=== PATIENT | male | born 1990 | race Caucasian/White ===

== ENCOUNTER 2021-10-22 14:01 | Emergency (ER) | payer SELFPAY ==
[~2021-10-22] VITALS: Ht 180.3 cm; Wt 120.0 kg
[2021-10-22] MEDS ORDERED: LORAZEPAM 2MG/ML CPJ IV ONE (15:00)
[2021-10-22] MEDS ORDERED: SODIUM CHLORIDE 0.9% 1,000 ML IV ONE ×2 (15:00→16:45)
[2021-10-22 15:39] LABS: HEMATOCRIT. 44.8 % (42.0-52.0); HEMOGLOBIN. 15.3 g/dL (14.0-18.0); MEAN CORPUSCULAR HEMOGLOBIN 35.2 pg (28.0-32.0); MEAN CORPUSCULAR VOLUME 103.1 fL (80.0-94.0); MEAN PLATELET VOLUME 8.8 fl (7.4-10.4); PLATELET 171 x1000/uL (130-400); RED BLOOD CELL COUNT 4.35 mill/uL (4.7-6.1)
[2021-10-22 15:48] LABS: CHLORIDE 99 mEq/L (98-107)
[2021-10-22 15:53] LABS: ETHANOL BLOOD 41 mg/dL
[2021-10-22 17:54] LABS: CLARITY URINE CLEAR (CLEAR); COLOR URINE YELLOW (YELLOW); KETONES URINE TRACE (NEGATIVE); LEUKOCYTE ESTERASE URINE NEGATIVE (NEGATIVE); NITRITE URINE NEGATIVE (NEGATIVE); OCCULT BLOOD URINE TRACE (NEGATIVE); PH URINE 6.5 (4.5-8.0); PROTEIN URINE 2+ (NEGATIVE)
[2021-10-22 18:10] LABS: PLATELET ESTIMATE NORMAL
[2021-10-22 18:12] LABS: *AMPHETAMINES SCREEN URINE NEGATIVE (NEGATIVE); *BARBITURATES SCREEN URINE NEGATIVE (NEGATIVE); *BENZODIAZEPINES SCREEN URINE NEGATIVE (NEGATIVE)
[2021-10-22 18:13] LABS: *COCAINE SCREEN URINE NEGATIVE (NEGATIVE); CANNABINOID URINE SCREEN PRESUMTIVE POSITIVE (NEGATIVE); METHADONE URINE SCREEN NEGATIVE (NEGATIVE); OPIATES URINE SCREEN NEGATIVE (NEGATIVE); PHENCYCLIDINE URINE SCREEN NEGATIVE (NEGATIVE)
[2021-10-22 18:30] VITALS: BP 146/85
== END 2021-10-22 20:00 | disposition home or self-care (01) ==
LOC: ER 14:01
DX: F10.239 Alcohol dependence with withdrawal, unspecified (principal); Y90.2 Blood alcohol level of 40-59 mg/100 ml; E86.0 Dehydration
CPT/HCPCS: 36415; 70450; 80053; 80305; 80320; 81003; 85025; 93005; 96374; 99285; J2060; J7030; G0480

== ENCOUNTER 2021-10-22 22:12 | Inpatient (IN) | payer SELFPAY ==
[~2021-10-22] VITALS: Ht 182.9 cm; Wt 103.4 kg
[2021-10-22] MEDS ORDERED: ONDANSETRON HCL 4MG/2ML INJ IV STA (22:48)
[2021-10-22] MEDS ORDERED: MAGNESIUM 2 G PREMIX 50 ML IV ONE (23:00)
[2021-10-22] MEDS ORDERED: FOLIC ACID 1 MG, THIAMINE HCL 100 MG, MVI, ADULT NO.1 10 ML in DEXTROSE 5% WATER 1,000 ML IV ONE ×4 (23:00)
[2021-10-22] MEDS ORDERED: LEVETIRACETAM 1000MG PREMIX 100 ML IV ONE (23:00)
[2021-10-23] MEDS ORDERED: ACETAMINOPHEN 325MG TABLET PO PRN (06:00)
[2021-10-23] MEDS ORDERED: DOCUSATE SODIUM 100MG CAPSULE PO PRN (06:00)
[2021-10-23] MEDS ORDERED: HYDROCODONE/ACETAMINOPHEN 5/325MG TABLET PO PRN (06:00)
[2021-10-23] MEDS ORDERED: ONDANSETRON HCL 4MG/2ML INJ IV PRN (06:00)
[2021-10-23] MEDS ORDERED: MVI, ADULT NO.1 10 ML, FOLIC ACID 1 MG, THIAMINE HCL 100 MG in SODIUM CHLORIDE 0.9% 1,0... IV SCH ×4 (06:00)
[2021-10-23] MEDS ORDERED: LORAZEPAM 2MG/ML CPJ IV PRN (06:00)
[2021-10-23] MEDS ORDERED: NALOXONE HCL 0.4MG/ML VIAL IV PRN (06:45)
[2021-10-23] MEDS: DEXT 5%/0.45% NACL 1000ML 1,000 ML IV SCH ×2 (08:00→17:11)
[2021-10-23 12:00] VITALS: BP 154/91
[2021-10-23 12:30] VITALS: BP 154/91
[2021-10-23] MEDS: FOLIC ACID 1MG TABLET PO SCH (12:32)
[2021-10-23] MEDS: THIAMINE HCL 100MG TABLET PO SCH (12:32)
[2021-10-23] MEDS: MULTIVITAMINS,THER W-MINERALS TABLET PO SCH (12:32)
[2021-10-23] MEDS: CHLORDIAZEPOXIDE 25MG CAPSULE PO SCH ×2 (14:54→22:18)
[2021-10-23 16:00] VITALS: BP 135/75
[2021-10-23 20:00] VITALS: BP 131/92
[2021-10-24] VITALS: BP 122/78
[2021-10-24 04:00] VITALS: BP 153/80
[2021-10-24] MEDS: CHLORDIAZEPOXIDE 25MG CAPSULE PO SCH (06:11)
[2021-10-24 06:48] LABS: HEMATOCRIT. 37.9 % (42.0-52.0); HEMOGLOBIN. 13.3 g/dL (14.0-18.0); MEAN CORPUSCULAR HEMOGLOBIN 35.7 pg (28.0-32.0); MEAN CORPUSCULAR VOLUME 101.4 fL (80.0-94.0); MEAN PLATELET VOLUME 8.8 fl (7.4-10.4); PLATELET 122 x1000/uL (130-400); RED BLOOD CELL COUNT 3.74 mill/uL (4.7-6.1); RED CELL DISTRIBUTION WIDTH 13.6 % (11.6-14.6)
[2021-10-24 07:00] LABS: CHLORIDE 106 mEq/L (98-107)
[2021-10-24 08:00] VITALS: BP 148/86
[2021-10-24] MEDS: DEXT 5%/0.45% NACL 1000ML 1,000 ML IV SCH (08:15)
[2021-10-24] MEDS: MULTIVITAMINS,THER W-MINERALS TABLET PO SCH (08:15)
[2021-10-24] MEDS: THIAMINE HCL 100MG TABLET PO SCH (08:15)
[2021-10-24] MEDS: FOLIC ACID 1MG TABLET PO SCH (08:15)
[2021-10-24] MEDS ORDERED: POTASSIUM CHLORIDE 20MEQ TABLET SR PO SCH (09:00)
[2021-10-24 10:24] VITALS: BP 148/86
[2021-10-24 14:05] LABS: PLATELET ESTIMATE SLIGHTLY DECREASED
== END 2021-10-24 11:15 | disposition home or self-care (01) | DRG 53 ==
LOC: ER 22:12 → MICUSO 10-23 00:49 → 8WST 10-23 09:43
PROVIDERS: ADMIT Hospitalist; ATTEND Hospitalist
DX: G40.909 Epilepsy, unspecified, not intractable, without status epilepticus (principal); F10.939 Alcohol use, unspecified with withdrawal, unspecified; Y90.9 Presence of alcohol in blood, level not specified; Z20.822 Contact with and (suspected) exposure to COVID-19; Z82.49 Family history of ischemic heart disease and other diseases of the circulatory system
CPT/HCPCS: 36415; 71045; 80053; 83605; 85025; 87426; 93005; 99285; J1953; J2405; J3411; J3475; J3490; J7070